=== PATIENT | male | born 1945 | race Caucasian/White ===

== ENCOUNTER 2016-10-20 11:50 | Emergency (ER) | payer OTHER, MEDICARE ==
[~2016-10-20] VITALS: Ht 170.2 cm; Wt 134.5 kg
[2016-10-20 11:57] VITALS: BP 150/75
[2016-10-20] MEDS ORDERED: ATIVAN 0.50.5 MG/TAB PO (14:13)
[2016-10-20 14:31] VITALS: PULSE 66
== END 2016-10-20 14:30 | disposition home or self-care (01) ==
LOC: COL.ER 11:50
DX: S06.0X1A Concussion with loss of consciousness of 30 minutes or less, initial encounter (principal); S13.4XXA Sprain of ligaments of cervical spine, initial encounter; V43.62XA Car passenger injured in collision with other type car in traffic accident, initial encounter; Y92.410 Unspecified street and highway as the place of occurrence of the external cause; S40.021A Contusion of right upper arm, initial encounter; S80.02XA Contusion of left knee, initial encounter; R40.2362 Coma scale, best motor response, obeys commands, at arrival to emergency department; R40.2142 Coma scale, eyes open, spontaneous, at arrival to emergency department; R40.2252 Coma scale, best verbal response, oriented, at arrival to emergency department; J45.909 Unspecified asthma, uncomplicated; Z90.01 Acquired absence of eye
CPT/HCPCS: J3010